=== PATIENT | female | born 1970 | race Caucasian/White ===

== ENCOUNTER 2021-01-08 09:07 | Outpatient (CLI) | payer BC, SELFPAY ==
--- NOTE | ~2021-01-08 | MM_ITS ---
EXAMINATION: MM screening rajat BI w terry HISTORY: Screening TECHNIQUE: Craniocaudal and mediolateral oblique 3-D tomosynthesis images were obtained and synthetic 2-D images were generated. CAD analysis was submitted and interpreted. COMPARISON: Comparison to multiple prior studies sequentially, with oldest reviewed study dated 01/06. BREAST PARENCHYMAL COMPOSITION: The breasts are heterogeneously dense, which may obscure small masses . FINDINGS: There is no evidence of suspicious mass, calcification, or architectural distortion to sugg est malignancy in either breast. There has been no suspicious interval change. IMPRESSION: 1. No mammographic evidence of malignancy. 2. Recommend routine screening mammography in one year. BI-RADS Category 1: Negative Reviewed, dictated and finalized at location A.
== END 2021-01-08 09:08 | disposition home or self-care (01) ==
LOC: ANHIMG 09:09
PROVIDERS: PCP Family Medicine; Visit Provider Nurse Practitioner Obstetrics & Gynecology
DX: Z12.31 Encounter for screening mammogram for malignant neoplasm of breast (principal)
CPT/HCPCS: 77063; 77067

== ENCOUNTER 2022-04-02 07:54 | Outpatient (CLI) | payer BC, SELFPAY ==
--- NOTE | ~2022-04-02 | MM_ITS ---
EXAMINATION: MM screening rajat BI w terry HISTORY: Screening TECHNIQUE: Craniocaudal and mediolateral oblique 3-D tomosynthesis images were obtained and synthetic 2-D images were generated. CAD analysis was submitted and interpreted. COMPARISON: Comparison to multiple prior studies sequentially, with oldest reviewed study dated 12/2013. BREAST PARENCHYMAL COMPOSITION: The breasts are heterogeneously dense, which may obscure small masses FINDINGS: There is no evidence of suspicious mass, calcification, or architectural distortion to sugg est malignancy in either breast. There has been no suspicious interval change. IMPRESSION: 1. No mammographic evidence of malignancy. 2. Recommend routine screening mammography in one year. BI-RADS Category 1: Negative Reviewed, dictated and finalized at location A.
== END 2022-04-02 07:55 | disposition home or self-care (01) ==
PROVIDERS: PCP Family Medicine; Visit Provider Nurse Practitioner Obstetrics & Gynecology
DX: Z12.31 Encounter for screening mammogram for malignant neoplasm of breast (principal)
CPT/HCPCS: 77063; 77067

== ENCOUNTER 2023-06-10 07:58 | Outpatient (CLI) | payer BC, SELFPAY ==
--- NOTE | ~2023-06-10 | MM_ITS ---
EXAMINATION: MM screening rajat BI w terry HISTORY: Screening TECHNIQUE: Craniocaudal and mediolateral oblique 3-D tomosynthesis images were obtained and synthetic 2-D images were generated. CAD analysis was submitted and interpreted. COMPARISON: Comparison to multiple prior studies sequentially, with oldest reviewed study dated 12/2013. BREAST PARENCHYMAL COMPOSITION: The breasts are heterogeneously dense, which may obscure small masses . FINDINGS: There is no evidence of suspicious mass, calcification, or architectural distortion to sugg est malignancy in either breast. There has been no suspicious interval change. IMPRESSION: 1. No mammographic evidence of malignancy. 2. Recommend routine screening mammography in one year. BI-RADS Category 1: Negative Reviewed, dictated and finalized at location A. E LABORATORY ANALYST
== END 2023-06-10 07:59 | disposition home or self-care (01) ==
LOC: ANHIMG 08:01
PROVIDERS: PCP Nurse Practitioner Family; Visit Provider Nurse Practitioner Obstetrics & Gynecology
DX: Z12.31 Encounter for screening mammogram for malignant neoplasm of breast (principal)
CPT/HCPCS: 77063; 77067

== ENCOUNTER 2025-05-09 08:28 | Outpatient (CLI) | payer OTHER, SELFPAY ==
--- NOTE | ~2025-05-09 | MM_ITS ---
EXAMINATION: MM screening rajat BI w terry HISTORY: Screening TECHNIQUE: Craniocaudal and mediolateral oblique 3-D tomosynthesis images were obtained and synthetic 2-D images were generated. CAD analysis was submitted and interpreted. COMPARISON: Comparison to multiple prior studies sequentially, with oldest reviewed study dated 12/24/2016. BREAST PARENCHYMAL COMPOSITION: Dense: The breasts are heterogeneously dense, which may obscure small masses FINDINGS: There is no evidence of suspicious mass, calcification, or architectural distortion to suggest malignancy in either breast. There has been no suspicious interval change. IMPRESSION: 1. No mammographic evidence of malignancy. 2. Recommend routine screening mammography in one year. BI-RADS Category 1: Negative Reviewed, dictated and finalized at location O. ESS INSTALLER
--- OUTSIDE RECORDS SUMMARY | 2025-05-09 08:33 | XMS_ITS | Data Portability ---
Author Organization [facility] Address [address] [place] [address] Assessment Encounter Date Assessment Date Assessment LastModified by Organization Details LastModified Time 03/18/2024 03/18/2024 Patient not seen due to emergent patient care; no charge visit [email or web address] Not available 03/18/2024 18:10:11 03/07/2025 03/07/2025 Annual gynecological exam performed. Patient will come back in a year unless there are new symptoms. Not available 03/07/2025 10:11:06 Plan of Treatment Reminders Order Date Submit Date Provider Last Modified By Organization Details Last Modified Time Details Appointments None recorded. Lab None recorded. Referral None recorded. Procedures None recorded. Surgeries None recorded. Imaging None recorded. Medication Orders Vivelle-Dot 0.1 mg/24 hr transdermal patch 2024 025 [id number] [facility] [id number] In [place] [id number] [place], [address], 5 10:37:40 progesteron e micronized 200 mg capsule 2024 025 MIMI [facility] [id number] In [facility] [address] [place], [address], 5 10:37:32 Vivelle-Dot 0.1 mg/24 hr transdermal patch 2024 025 M[facility]I [facility] [id number] In [facility] [address] [place], [address], 5 17:18:17 progesteron e micronized 100 mg capsule 2024 025 MIMI [facility] [id number] In [facility], [address] [facility], [place], [address], 5 10:27:23 Vivelle-Dot 0.1 mg/24 hr transdermal patch 2023 024 MIMI [facility] [id number] In [facility], [address], [place], [address], 4 00:24:32 estradiol 2 mg tablet 2023 024 [id number] [id number] In [facility], [address] [facility], [place], [address], 5 17:12:59 Patient TargetsNo targets recorded. Patient InstructionsNo instructions recorded. Reason for Referral None Reported. Results Created Date Observation Date Name Description Value Unit Range Abnormal Flag Note LastModifiedBy Organization Detail LastModifiedTime 03/07/20 25 03/07/2025 IMAGE GUIDE D PAP AND HPV REGAR DLESS image guided Pap, HPV regardless of Pap result SEE RESULT S BELOW CASE REPOR T: Cytol ogy Gynec ologi amy Repor t Case: [id number] Autho leona g Provi marcus: Chandrika Whitney MD Colle cted: 03/07 1048 Order ing Locat ion: [place] [facility] Recei karthik: 03/08 0049 First Scree n: Shady goldstein, Lexx ed, CT Speci men: Scree patt Pap - Image d, Cervi x STATE MENT OF ADEQU ACY: Satis facto ry for evalu ation Trans forma tion zone compo nent absen t ----- ----- ----- ----- ----- ----- ----- ----- ----- ----- ----- ----- ----- ----- ----- ----- ----- ---- FINAL DIAGN OSIS: Negat florina for Intra epith elial Lesio audrey or Tina holm (NIL) . Elect ferdinand bowden d by Lexx Camarena ed, CT on 2024 at 2257 CDT ----- ----- ----- ----- ----- ----- ----- ----- ----- ----- ----- ----- ----- ----- ----- ----- ----- ---- HPV RESUL TS: HPV mRNA E6/E7 : No HPV mRNA Detec ricardo NOTE: This high risk HPV mRNA assay detec ts fourt een high- risk HPV types (16, 18, 31, 33, 35, 39, 45, 51, 52, 56, 58, 59, 66, 68) witho ut diffe renti ation . COMME NT: This speci men was revie wed by a Cytot echno logis t and/o r Patho logis t (as indic ated in this repor t) after evalu ation using the Thinp rep Imagi ng Syste m. CLINI AMY INFOR MATIO N: Menst rual Statu s: LMP (if appli cable ): Clini amy Histo ry/Pr eviou s Pap: Type of Neopl marshall (if appli cable ): Signi fican t Clini amy Findi ngs: Other Histo ry: Hormo david (if appli cable ): PAP EDUCA LEOPOLDO L NOTE: The Pap Test is a scree patt test with an inher ent false negat florina rate. Liqui d-bas ed sampl ing may decre ase, but will not elimi victor m, false negat florina resul ts. A negat florina resul t does not precl ude the prese nce and/o r devel opmen t of disea se, since the prese nce of abnor mal cells in the sampl e depen ds on the locat ion of the lesio n and sampl ing techn ique. Barb nued regul ar scree patt is the best metho d of cance r preve ntion . If repor ricardo cytol ogic findi ng do not corre late with physi amy and/o r histo rical findi ngs, furth er inves tigat ion is recom dana d, as clini elian orourke nted. Not Available [facility] (Lab) [address], [place], [address], 03/12/2025 00:00:54 Result Notes None recorded. Problems Name Problem SNOMED Code Status Onset Date Resolution Date Notes Provider Name and Address Organization Details Recorded Time Screenin g for malignan t neoplasm of cervix Completed 201112/24/2020 Pap Smear;Pr actice ID: [address] [facility] 17:06:53 Adult health examinat ion Completed 201312/24/2020 ROUTINE MEDICAL EXAM;Rec orded Elsewher e: No Locat ion: [facility] S ource: EHR Office Support Clerk tan: N Kianati ce ID: 0001 Matt lable Time: 08:30:[address] [facility] 17:06:39 Speciali zed medical examinat ion Completed 201412/24/2020 Gynecolo gical Examinat ion;Kuldip rded Elsewher e: No Locat ion: [facility] S ource: EHR Office Support Clerk tan: N Kianati ce ID: 0001 Matt lable Time: 08:30:00 AM Maggi [facility] 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 17:06:58 Pain co-occur rent and due to varicose veins of left leg [id number] Completed 201612/24/2020 Varicose veins of left lower extremit ies with pain;Rec orded Elsewher e: No Locat ion: [facility] S ource: EHR Office Support Clerk tan: N Practi ce ID: 0001 Matt lable Time: 09:00:00 AM Maggi [facility] 17:06:[address] Concept Completed 201612/24/2020 Encntr for general adult medical exam w/o abnormal findings ;Recorde d Elsewher e: No Locat ion: [facility] S ource: EHR Office Support Clerk tan: N Practi ce ID: 0001 Matt lable Time: 09:00:00 AM Maggi espinoza, [facility] 17:06:56 Urinary tract infectio us disease [id number] Completed 201612/24/2020 Urinary tract infectio n, site not specifie d;Practi ce ID: 0001 Maggi espinoza, [facility] 17:07:02 Increase d frequenc y of urinatio n [id number] Completed 201612/24/2020 Frequenc y of micturit ion;Prac samra ID: 0001 Maggi [facility] 17:06:46 Evaluati on finding Completed 201712/24/2020 Hematuri a, unspecif ied;Kuldip rded Elsewher e: No Locat ion: [facility] S ource: EHR Office Support Clerk tan: N Practi ce ID: 0001 Matt lable Time: 04:30:00 PM Maggi espinoza [facility] 17:06:45 Screenin g for malignan t neoplasm of rectum Completed 201812/24/2020 Encounte r for screenin g for malignan t neoplasm of rectum;R ecorded Elsewher e: No Locat ion: [facility] S ource: EHR Office Support Clerk tan: N Practi ce ID: 0001 Matt lable Time: 08:30:00 AM Maggi [facility] 1 17:06:55 Pelvic and perineal pain [id number] Completed 201812/24/2020 Pelvic pain;Rec orded Elsewher e: No Locat ion: [facility] S ource: EHR Office Support Clerk tan: N Practi ce ID: 0001 Matt lable Time: 08:30:00 AM Maggi Walker [facility] 1 17:06:52 Problem Notes None recorded. Procedures Surgical History Date Name Laterality Status Provider Name and Address Organization Details Recorded Time 3 Date of Last Mammogram completed [facility] 11/23/2023 16:28:20 3 Date of Last Pap Smear completed [facility] 11/23/2023 16:26:48 2 section completed [facility] 04/17/2021 10:54:07 2 Tubal Ligation completed [facility] 04/17/2021 10:53:54 7 section completed [facility] 04/17/2021 10:54:14 5 section completed [facility] 04/17/2021 10:54:28 1 extraction of wisdom tooth completed [facility] 04/19/2021 16:06:15 Imaging Results None recorded. Procedure Notes None recorded. Medical Equipment None Reported. Allergies Allergen ID Allergen Name Allergen Category Reaction Reaction Severity Criticality Documentation Date Start Date Code Code System Note Provider Name and Address Organization Details Recorded Time 1133 codeine medicatio n Not available Not available Not available 12/16/2019 3420 RxNorm upset stoma ch Adela Fern [facility], [facility] 3 10:30:49 Medications Name Sig Start Date Stop Date Status Note LastModified by Organization Details LastModified Time paroxetin e 10 mg tablet TAKE 1 TABLET BY MOUTH EVERY DAY IN THE MORNING 02/08 completed Not Available Not Available Not Available Vivelle-D ot 0.1 mg/24 hr transderm al patch Apply 1 patch twice a week by transder mal route for 90 days. 2024 active Not Available Not Available Not Avai lable azithromy vee 250 mg tablet TAKE 2 TABLETS BY MOUTH TODAY, THEN TAKE 1 TABLET DAILY FOR 4 DAYS 06/08 completed Not Available Not Available Not Available CombiPatc h 0.05 mg-0.14 mg/24 hr transderm al APPLY 1 PATCH TOPICALL Y TO THE SKIN 2 TIMES EVERY WEEK 10/16 completed Not Available Not Available Not Available fluconazo le 150 mg tablet Take 1 tablet by oral route 07/20 completed Not Available Not Available Not Available valacyclo vir 1 gram tablet 01/08 completed Not Available Not Available Not Available metronida zole 0.75 % (37.5 mg/5 gram) vaginal gel INSERT 1 APPLICAT ORFUL VAGINALL Y EVERY DAY FOR 5 DAYS 06/08 completed Not Available Not Available Not Available estradiol 0.05 mg/24 hr semiweekl y transderm al patch APPLY 1 PATCH TWICE A WEEK BY TRANSDER MAL ROUTE FOR 90 DAYS 04/16 completed Not Available Not Available Not Available sulfameth oxazole 800 mg-trimet hoprim 160 mg tablet TAKE 1 TABLET BY MOUTH EVERY 12 HOURS FOR 7 DAYS 04/05 completed Not Available Not Available Not Available Macrobid 100 mg capsule Take 1 capsule every 12 hours by oral route for 5 days. 12/24 completed Not Available Not Available Not Available estradiol 1 mg tablet TAKE 1 TABLET BY MOUTH EVERY DAY AT BEDTIME 07/09 completed Not Available Not Available Not Available cephalexi n 500 mg capsule 12/24 completed Not Available Not Available Not Available progester one micronize d 200 mg capsule Take 1 capsule every day by oral route for 90 days. 2024 active Not Available Not Available Not Avai lable sertralin e 25 mg tablet TAKE 1 TABLET BY MOUTH EVERY DAY WITH MEALS FOR 30 DAYS 04/16 completed Not Available Not Available Not Available CombiPatc h 0.05 mg-0.25 mg/24 hr transderm al APPLY 1 PATCH TWICE A WEEK BY TRANSDER MAL ROUTE DIRECTED 11/22 completed Not Available Not Available Not Available estradiol 2 mg tablet TAKE 1 TABLET BY MOUTH EVERY DAY 07/09 completed Not Available Not Available Not Available ergocalci ferol (vitamin D2) 1,250 mcg (50,000 unit) capsule TAKE 1 CAPSULE BY MOUTH EVERY WEEK WITH MEAL FOR 90 DAYS 10/17 completed Not Available Not Available Not Available methylpre dnisolone 4 mg tablets in a dose pack active Not Available Not Available Not Available fluticaso ne propionat e 50 mcg/actua tion nasal spray,arsenio pension INSTILL 2 SPRAYS BY INTRANAS AL ROUTE EVERY DAY 02/08 completed Not Available Not Available Not Available progester one micronize d 100 mg capsule TAKE 1 CAPSULE BY MOUTH EVERY DAY FOR 90 DAYS 03/07 completed Not Available Not Available Not Available Vitamins and Minerals tablet 10/17 completed Prescrib brenda foster: Yes [facility]oca [facility] By: rupal crain DateTime : 12/14/19 12 08:15:00 AM Not Available Not Available Not Available Premarin 0.625 mg/gram vaginal cream Insert 0.5gm vaginall y nightly x 14 days then, insert twice a week for maintena nce. 10/16 completed Not Available Not Available Not Available Tri-Sprin debbie (28) 0.18 mg(7)/0.2 15 mg(7)/0.2 5 mg(7)-0.0 35 mg tablet TAKE 1 TABLET BY MOUTH ONCE DAILY 12/25 completed Not Available Not Available Not Available Vitamins and Minerals 12/25 completed Not Available Not Available Not Available Tri-Sprin debbie (28) 12/24 completed Not Available Not Available Not Available estradiol -norethin drone acet 0.5 mg-0.1 mg tablet TAKE ONE TABLET DAILY IN MORNING FOR 90 DAYS 10/17 completed Not Available Not Available Not Available Women's Daily Multivita min active Not Available Not Available Not Available Xhance 93 mcg/actua tion breath activated aerosol 2 SPRAYS IN EACH NOSTRIL NASALLY ONCE A DAY 30 DAYS active Not Available Not Available No t Available Imvexxy Maintenan ce Pack 4 mcg vaginal insert Insert 1 vaginal insert twice a week by vaginal route at bedtime for 30 days. 01/14 completed Not Available Not Available Not Available Vitals Date Recorded Body height Body mass index (BMI) Body weight Systolic And Diastolic Provider Name and Address Organization Details Last Updated DateTime 07/09/2024 162.56 cm 21.1 kg/m2 10400.86 g 122/82 mm[Hg] Keeley [facility] 07/09/2024 17:03:52 Date Recorded Body height Body mass index (BMI) Body weight Systolic And Diastolic Provider Name and Address Organization Details Last Updated DateTime 01/15/2024 162.56 cm 22.2 kg/m2 70932.85 g 111/68 mm[Hg] Francheska Chou [facility] 01/15/2024 16:23:36 Date Recorded Body height Body mass index (BMI) Body weight Systolic And Diastolic Provider Name and Address Organization Details Last Updated DateTime 03/07/2025 162.56 cm 21.6 kg/m2 23957.64 g 129/78 mm[Hg] Lexy Platt [facility] 03/07/2025 10:12:08 Date Recorded Body height Body mass index (BMI) Body weight Systolic And Diastolic Provider Name and Address Organization Details Last Updated DateTime 04/15/2024 162.56 cm 21.1 kg/m2 04960.86 g 110/74 mm[Hg] Keeley Villanueva [facility] 04/15/2024 17:06:30 Social History Question Answer Notes LastModified by Organizat ion Details LastModified Time Tobacco Smoking Status Never Smoker Sahil espinoza [facility] 04/17/2021 10:35:58 Do You Have An Advance Directive? No Information n ot available 04/05/2021 Are You Blind Or Do You Have Difficulty Seeing? No Information n ot available 12/24/2020 What Is Your Level Of Caffeine Consumption? Occasional Information not available 12/24/2020 In The 14 Days Before Symptom Onset, Have You Had Close Contact With A Laboratory-confirm ed COVID-19 While That Case Was Ill? No Information n ot available 04/05/2021 In The 14 Days Before Symptom Onset, Have You Had Close Contact With A Person Who Is Under Investigation For COVID-19 While That Person Was Ill? No Information not available 04/05/2021 Have You Been To An Area Known To Be High Risk For COVID-19? No Information not available 04/05/2021 Are You Deaf Or Do You Have Serious Difficulty Hearing? No Information not available 12/24/2020 What Type Of Diet Are You Following? REGULAR Information n ot available 04/17/2021 What Is The Highest Grade Or Level Of School You Have Completed Or The Highest Degree You Have Received? [id number] Information not available 04/05/2021 Have You Ever Been Counseled For Unhealthy Alcohol Use? No [email or web address] Information not available 08/07/2021 Do You Use Your Seat Belt Or Car Seat Routinely? Yes Information not available 12/24/2020 Do You Have Smoke And Carbon Monoxide Detectors In Your Home? Yes Information not available 12/24/2020 How Much Tobacco Do You Smoke? No Information not available 04/05/2021 Do You Use Sunscreen Routinely? Yes Information not available 12/24/2020 Has Tobacco Cessation Counseling Been Provided? No [email or web address] Information not available 08/07/2021 Have You Used IV Drugs? No Information not available 04/05/2021 Do You Have Difficulty Walking Or Climbing Stairs? No [email or web address] Information not available 08/07/2021 Sex: Unknown Functional Status Question Answer Note LastModified by Organizat ion Details LastModified Time Do you use any illicit or recreational drugs? No Information not available 12/24/2020 Do you or have you ever used any other forms of tobacco or nicotine? No [email or web address] Information not available 08/07/2021 What is your level of alcohol consumption? Occasional [email or web address] Information not available 08/07/2021 Are you able to walk independently without assistance or assistive devices? [email or web address] Information not available 12/24/2020 Are you able to care for yourself independently? Yes Information not available 08/07/2021 Do you have difficulty dressing, bathing, grooming, or toileting? No Information not available 08/07/2021 What is your exercise level? Occasional Information not available 04/05/2021 Mental Status Question Answer Note LastModified by Organization D etails LastModified Time Do you feel stressed (tense, restless, nervous, or anxious, or unable to sleep at night)? [id number] Information not available 12/24/2020 Family History Relationship Description Onset Age of this Age Resolved Age Notes LastModified by Organization Details LastModified Time Father No current problems or disability [email or web address] Not available 03/21 09:33:07 Mother No current problems or disability [email or web address] Not available 03/21 09:33:07 Medical History Condition Response Allergies (Food, seasonal, environmental ) N Other Y Breast Cancer N Drug/Latex Allergies/Reactions N Blood Transfusion N Dermatologic Disorders N Lung Disease N Defects or Inherited Disease N Breast Problem N Gestational Diabetes Y Hematologic disorders N Anesthesia Complications N History of STI Y Deep Vein Thrombosis N Polycystic ovary syndrome N Anxiety Disorder Y Autoimmune disease N Arthritis N Infertility N Polyps N Acid Reflux (GERD) N History of abnormal pap N Cancer N Stroke N Varicosities N Neurologic/Epilepsy N Endometriosis N High Cholesterol N Headaches N Fibromyalgia N Kidney Disease N Heart Problems N Kidney or Bladder Problems N Thyroid Problems Y GI Problems N Eating Disorder N Anemia N Art (IVF or FET) N Psychiatric Illness N Ovarian Cancer N Diabetes Y Pulmonary (TB, Asthma) N Hepatitis/Liver Disease N No Past Medical History N Eczema N Urinary Tract Infection N Abuse/Domestic Violence N Asthma N Trauma/Violence N Depression/ depression Y Heart Disease Y Pre-Eclampsia N Hypertension N Osteoporosis N Thrombophilias N Gynecological History Statement/Question Response Abnormal Pap N Date of Last Mammogram 06/10/2023 Flow Moderate Date of LMP Was last menstrual period normal N STIs/STDs Y HPV Vaccine N 14 Current Control Method Tubal Ligat ion If Post Menopausal, Age at Menopause 50 Are cycles usually normal N Date of Last Colonoscopy Sexually Active? Y Menses Monthly N Date of Last Pap Smear 02/08/2023 Sexual Problems? Y Desired Control Method Other LMP Approximate Obstetrics History GPAL:G 3 P 3 0 0 3 Type Value Full Term 3 Living 3 Total 3 Past Encounters Encounter ID Performer Location Encounter Start Date Encounter Closed Date Diagnosis/Indication Diagnosis SNOMED-CT Code Diagnosis ICD10 Code Diagnosis IMO Codes Diagnosis Note [id number] Evelia Mckeon , [facility] [address] [address] 12/16/2019 09:33:40 12/16/2019 10:31:09 Gynecologic examination [id number] Z01.419 Z30.8 Suggested Calcium with Vitamin D 1200-1500m g daily. Patient advised to get an annual flu shot in the fall and she could obtain at [facility] or [facility] clinic. Also to obtain TDap vaccinatio n if you have not had one in the last 10 years. Recommend yearly mammograms . Encouraged monthly self breast exams. Encourage safe sexual practices, to use condoms and limit partners if not already in a monogamous relationsh ip. Engage in daily exercise of low impact aerobic exercise 45-60 minutes 4-5 times weekly. Avoid tobacco and illicit drugs as well as using moderation with alcohol intake less than 1-2 8 oz beverages daily. This lifestyle behavior pattern will lead to less health conditions and longer life span. If BMI greater than 25 weight watchers or dietary consult advised. All questions have been answered. Patient appears to understand informatio n, but if you have any questions please call or respond to this email. Pap/hPV updated If appropriat e consider q3yr pap/hpv per asccp Mammo ordered RF OCP [id number] Katarzyna Bee CNM [facility] [address] [address] 02/25/2020 17:29:12 02/25/2020 17:52:51 [id number] Evelia Mckeon [facility] [address] [address] 12/25/2020 10:01:24 12/25/2020 12:12:59 Gynecologic examination [id number] Z01.419 Z30.8 Suggested Calcium with Vitamin D 1200-1500m g daily. Patient advised to get an annual flu shot in the fall and she could obtain at [facility] or [facility] clinic. Also to obtain TDap vaccinatio n if you have not had one in the last 10 years. Recommend yearly mammograms . Encouraged monthly self breast exams. Encourage safe sexual practices, to use condoms and limit partners if not already in a monogamous relationsh ip. Engage in daily exercise of low impact aerobic exercise 45-60 minutes 4-5 times weekly. Avoid tobacco and illicit drugs as well as using moderation with alcohol intake less than 1-2 8 oz beverages daily. This lifestyle behavior pattern will lead to less health conditions and longer life span. If BMI greater than 25 weight watchers or dietary consult advised. All questions have been answered. Patient appears to understand informatio n, but if you have any questions please call or respond to this email. Pap/hPV updated If appropriat e consider q3yr pap/hpv per asccp Mammo ordered Adult heal th examination [id number] Z00.00 Will do updated yearly labs which she will need to take to her PCP.In addition, this will ensure none of her other sx's are related other issues. Menopausal flushing 1983 52491 N95.1 We discussed Menopausal Hormone therapy (MHT) for women with intact uterus with the goals of reliving vaso-motor sx's using estrogen/p rogestin therapy (EPT) using lowest doses for shortest duration in women 40-59yo. Contraindi cations include: Hx of DVT or thrombolic events, High cholestero l, Hx of breast cancer, known CHD, active liver disease, unexplaine d vag bleeding, high risk endometria l cancer, TIA. Side effects can include but are not limited to: Irregular vag bleeding,, breast tenderness , nausea, weight changes, libido changes, nausea. Adverse Rxn: Elevated BP migraine w/ visual changes, breast cancer dx, [place]/stroke, DVT/PE, Endometria l cancer. Please contact office with any new or worsening side effects or adverse reactions. Or if a medical emergency please go to nearest ED/[facility] for further evaluation . Will consider moving forward if she is not getting the relief from the new supplement s that she is taking. Recommend The menopause manifesto by Dr. Malathi Chavez. Missed menses LMP 09/2020.Off OCP x 3mos.Check to see if in menopause. Dyspareunia [id number] N94 .10 Counseled on medication R/B's, Most common side effects, & use. All questions were answered to patient satisfacti on. Opts to trial low dose vaginal estrogen therapy today.Add VCG moisturizi ng daily F/U x 3mos [id number] Ana Fernandez MD [facility] [address],[place] [address] 03/15/2021 17:11:38 03/16/2021 15:31:44 Urinary symptoms [id number] R39.9 [id number] [facility] [address],[place] [address] 04/05/2021 10:29:40 04/05/2021 12:04:38 Menopausal symptom [id number] R94.5 N95.1 We discussed Menopausal Hormone therapy (MHT) for women with intact uterus with the goals of reliving vaso-motor sx's using estrogen/p rogestin therapy (EPT) using lowest doses for shortest duration in women 40-59yo. Contraindi cations include: Hx of DVT or thrombolic events, High cholestero l, Hx of breast cancer, known CHD, active liver disease, unexplaine d vag bleeding, high risk endometria l cancer, TIA. Side effects can include but are not limited to: Irregular vag bleeding,, breast tenderness , nausea, weight changes, libido changes, nausea. Adverse Rxn: Elevated BP migraine w/ visual changes, breast cancer dx, IL/stroke, DVT/PE, Endometria l cancer. Please contact office with any new or worsening side effects or adverse reactions. Or if a medical emergency please go to nearest ED/[facility] for further evaluation . Will check in with PCP for labile liver enzyme results (current levels only 1 is slightly elevated). Hx of MVP since she was a kid but no medication s/surgerie s and no cardiologi st required.P reviously tolerated OCP very well. RTO x 3mos medication checkPleas e bring updated labs from PCP with you.Unders tanding verbalized for all risks discussed with use of HRT & her personal R/B ratios. Time spent in visit is a total of 32 mins with at least 50% of visit consisting of counseling and review of plan of care.Addit ional precaution ismael measures were taken to minimize potential exposure to the Covid-19 virus during this patient s visit, including available hand labor utilization superintendent upon arrive, temperatur e check and being asked a series of screening questions. All staff wore face coverings during this encounter, as well as provided additional cleaning and sanitizing of all surfaces, including countertop s, pens, chairs, door handles, light switches, etc, prior to and following the patient s visit. [id number] Evelia Mckeon [facility] [address],[place] [address] 04/17/2021 10:34:41 04/18/2021 22:50:33 Vaginitis [id number] N76.0 Suspect yeast infection after abx use.+Yeast like d/c on examDifluc an sentSwab sent to confirm no other issuesDecl maurisio need std screen Pain in pelvis [id number] R10.2 Having some random left sided pelvic painDoing well today but feels more reassured with plan to update US. [id number] Lino Brown MD [facility] [address],[place] [address] 04/19/2021 12:32:35 04/19/2021 13:06:09 Pain in pelvis [id number] R10.2 [id number] Evelia Mckeon [facility] [address],[place] [address] 06/28/2021 12:21:59 06/28/2021 15:08:28 Menopausal symptom [id number] R94.5 N95.1 Trial of increasing progestero ne levels but keep estrogen the same; hoping this will decrease liklihood of any intermitte nt spotting with menstrual cycles.We will monitor this aspect & if continues to have issues r/p labs & update TVUS as might need EMBx to ensure no abnormalit ies. We will see if adding a bit more progestero ne will also help her mood but also discussed that an addition of a low dose SSRI would likely be a more pliable option for this issue. Plus, we also do not want to add any more hormone to her plan then we require. She verbalizes understand ing. Additional issues to address moving forward:1. Mood2. Dyspareuni a3. AUB from HRT and need for EMBx. RTO x 2-4wks for medication check & discussion of progress. Time spent in visit is a total of 15 mins with at least 50% of visit consisting of counseling and review of plan of care.Addit ional precaution ismael measures were taken to minimize potential exposure to the Covid-19 virus during this patient s visit, including available hand labor utilization superintendent upon arrive, temperatur e check and being asked a series of screening questions. All staff wore face coverings during this encounter, as well as provided additional cleaning and sanitizing of all surfaces, including countertop s, pens, chairs, door handles, light switches, etc, prior to and following the patient s visit. [id number] Evelia Mckeon , [facility] [address] [address] 08/07/2021 09:42:17 08/07/2021 12:12:40 Menopausal symptom [id number] R94.5 N95.1 N94.19 Vaginitis vs Perimenopa use changesSwa b sent but still with prominent perimenopa use changes as we previously discussed. Crisco daily 2-3x/dayWi ll trial Premarin Cream RTO x 2mosVCG's consistent use.Will call with results. HRT:We will again update her HRT regimen.Co nsider doing an all Estrogen patch and then bumping up Prometrium 200mg daily vs 100mg daily.Will see how she is doing in 2mos. Elevated Liver enzymes:Wi ll have PCP office fax updated lab results.Re ports her liver enzymes are back in a normal range.Her DM2 numbers have also improved.W ashley continue her dietary changes that have helped these issues. [id number] Evelia Mckeon , [facility] [address],[facility] [address] 10/16/2021 10:23:57 10/16/2021 11:08:15 Menopausal symptom [id number] R94.5 N95.1 N94.19 Doing well on current regimen.We did decide to do estradiol patch alone coupled with prometrium 200mg (instead of combi patch).She will get her CMP updated & make WWE at which we will ensure she is still stable on HRT.Using coconut oil for vaginal lubricant daily/with sex.She has no questions or concerns today. Time spent in visit is a total of 15 mins with at least 50% of visit consisting of counseling and review of plan of care. [id number] Evelia Mckeon , [facility] [address],[place] [address] 01/08/2022 10:11:53 01/10/2022 16:32:28 Gynecologic examination [id number] Z01.419 Z30.8 Suggested Calcium with Vitamin D 1200-1500m g daily. Patient advised to get an annual flu shot in the fall and she could obtain at [facility] or [facility] clinic. Also to obtain TDap vaccinatio n if you have not had one in the last 10 years. Recommend yearly mammograms . Encouraged monthly self breast exams. Encourage safe sexual practices, to use condoms and limit partners if not already in a monogamous relationsh ip. Engage in daily exercise of low impact aerobic exercise 45-60 minutes 4-5 times weekly. Avoid tobacco and illicit drugs as well as using moderation with alcohol intake less than 1-2 8 oz beverages daily. This lifestyle behavior pattern will lead to less health conditions and longer life span. If BMI greater than 25 weight watchers or dietary consult advised. All questions have been answered. Patient appears to understand informatio n, but if you have any questions please call or respond to this email.Pap/ hpv due q3-5yrsSTD Screen declinedGe netic Screen discussedC olon Screen orderedDex a Screen naRoutine Labs UTDMammo ordered Menopausal symptom 89512 002 R94.5 N95.1 N94.19 RF sent Screening mammography 24 673747 Z12.31 Screening for malignant neoplasm of colon [id number] Z12.11 [id number] Evelia Mckeon [facility] [address],[place] [address] 03/09/2022 10:36:45 03/09/2022 12:32:13 Menopausal symptom 38534169 R94.5 N95.1 N94.19 Patient prefers to switch back to combi patch.Feel s worked better for her menopause sx'sWe can do med check x 4wks along with Zoloft HRT Therapy. We discussed E/P & P only therapy. All risks/bene fits of this therapy were discussed today. Patient meets criteria for use of E/P or P-only. Handouts/w ebsite resources were given for home review. Generalize d anxiety disorder [id number] F41.1 Trial of low dose zoloft for JACINDA which also may help with additional management of menopause sx's. Counseled on r/b's, most common side effects of this therapy with instructio ns to stop medication with any significan t abnormal change in mood especially with thoughts of suicide/se lf-harm/eden rm to others. Understand ing verbalized .RTO x 4wks Med checkNOTE: Will have fill out JACINDA questionna ires Adult heal th examination [id number] Z00.00 In addition, will do updated yearly labs & if any abn values understand s referrals will be required for further management depending on the issue at hand. Vitamin D deficiency 347 32835 E55.9 [id number] Evelia Mckeon [facility] [address],[place] [address] 04/16/2022 09:22:33 04/18/2022 16:46:52 Menopausal symptom 72361313 R94.5 N95.1 N94.19 On Combi-patc h.Overall doing well but did have some BTB felt like a little crampy period this past week after using it for about a month now.Hotfla shes/night sweats improving. Moods more stable/fee ls able to calm herself if feels her emotions rise. We discussed sending a portal message updating us on if this BTB occurred again after another 2mos (full 3mos on this HRT).If it becomes a regular occurrence we will update US to determine if further evaluation /changes are required. If stable & doing well will continue. Vitamin D deficiency [address] D & we can recheck labs in about 3mos. Generalize d anxiety disorder [id number] F41.1 Stopped Zoloft after 2 days.Took at night & kept her up.Took in afternoon next day & still felt it effected her sleep & had a little dizziness which concerned her.Neg feeling of suicidal thoughts/t houghts of self harm.Stopp ed meds.Start ed Ashwaganda twice a day; we discussed adding L-theanine 200mg BID to this regimen which she felt does help her anxiety and ability to calm herself when emotions elevate.Wo rking on mindfulnes s & self-care. May continue but will reach out if feels this is not adequately managing her anxiety/di srupting her quality of life. [id number] Evelia Mckeon [facility] [address],[place] [address] 10/17/2022 09:55:43 10/17/2022 11:08:17 Menopausal symptom 29860225 R94.5 N95.1 N94.19 Will restart Combi-patc h.Risks/be nefits reviewed.W ill f/u at her upcoming [employer] visit this summer unless she feels like changes are needed prior to this time.Rx sentHx reviewed & changes updated in Hx. Time spent in visit is a total of 15 mins with at least 50% of visit consisting of counseling and review of plan of care. [id number] Evelia Mckeon [facility] [address],[place] [address] 02/08/2023 10:09:36 02/08/2023 11:04:21 Gynecologic examination [id number] Z01.419 Z30.8 Suggested Calcium with Vitamin D 1200-1500m g daily. Patient advised to get an annual flu shot in the fall and she could obtain at [facility] or [facility] take care clinic. Also to obtain TDap vaccinatio n if you have not had one in the last 10 years. Recommend yearly mammograms . Encouraged monthly self breast exams. Encourage safe sexual practices, to use condoms and limit partners if not already in a monogamous relationsh ip. Engage in daily exercise of low impact aerobic exercise 45-60 minutes 4-5 times weekly. Avoid tobacco and illicit drugs as well as using moderation with alcohol intake less than 1-2 8 oz beverages daily. This lifestyle behavior pattern will lead to less health conditions and longer life span. If BMI greater than 25 weight watchers or dietary consult advised. All questions have been answered. Patient appears to understand informatio n, but if you have any questions please call or respond to this email.Pap/ hpv due q3-5yrsSTD Screen declinedGe netic Screen discussedC olon Screen PCPDexa Screen naRoutine Labs UTD PCPMammo orderedDoi ng well on combi patch-no changes needed there.Call if need RF's Screening mammography 24 403908 Z12.31 [id number] Evelia Mckeon [facility] [address] [address] 06/08/2023 08:58:18 06/08/2023 10:41:36 Vaginitis 39482369 N76.0 Today we agreed to continuing VCG's and 4wks for imvexxy to restore balance to postmenopa usal tissues post-infec tion/treat ment of BV. Will call if sx's persist past this time or new ones present. Counseled on medication R/B's, Most common side effects, & use. All questions were answered to patient satisfacti on. Time spent in visit is a total of 22 mins with at least 50% of visit consisting of counseling and review of plan of care. Adult [facility] th examination 770441144 Z00.00 In addition, will do updated yearly labs & if any abn values understand s referrals will be required for further management depending on the issue at hand. [id number] Evelia Mckeon [facility] [address] [address] 11/23/2023 16:16:23 12/11/2023 05:32:00 Menopausal symptom 79039700 R94.5 N95.1 N94.19 Increase in her vasomotor sx's on combi-patc hWould like to trial PO therapy vs patch.Does not want to go back to [facility].W e discussed go ahead with trial of Low dose Testostero ne cream for Low libido; we also discussed that she could have female pattern baldness which usually requires anti-roscoe gen; She would still like to try it for 3mos; but will stop if noticing any significan t increase in this issue.Base line Total Testostero ne was on labs recently done by [facility]; these were scanned into her chart; and wnl for female. Reviewed again R/B of HRT as stated.Aga in wishes to proceed with trial.F/U x 3mos med check We discussed Menopausal Hormone therapy (MHT) for women with intact uterus with the goals of reliving vaso-motor sx's using estrogen/p rogestin therapy (EPT) using lowest doses for shortest duration in women 40-59yo. Contraindi cations include: Hx of DVT or thrombolic events, High cholestero l, Hx of breast cancer, known CHD, active liver disease, unexplaine d vag bleeding, high risk endometria l cancer, TIA. Side effects can include but are not limited to: Irregular vag bleeding,, breast tenderness , nausea, weight changes, libido changes, nausea. Adverse Rxn: Elevated BP migraine w/ visual changes, breast cancer dx, IL/stroke, DVT/PE, Endometria l cancer. Please contact office with any new or worsening side effects or adverse reactions. Or if a medical emergency please go to nearest ED/[facility] for further evaluation . 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 Gynecologi c examination 91798828 Z01.419 Z11.51 Suggested Calcium with Vitamin D 1200-1500m g daily. Patient advised to get an annual flu shot in the fall and she could obtain at [facility] or [facility] take care clinic. Also to obtain TDap vaccinatio n if you have not had one in the last 10 years. Recommend yearly mammograms . Encouraged monthly self breast exams. Encourage safe sexual practices, to use condoms and limit partners if not already in a monogamous relationsh ip. Engage in daily exercise of low impact aerobic exercise 45-60 minutes 4-5 times weekly. Avoid tobacco and illicit drugs as well as using moderation with alcohol intake less than 1-2 8 oz beverages daily. This lifestyle behavior pattern will lead to less health conditions and longer life span. If BMI greater than 25 weight watchers or dietary consult advised. All questions have been answered. Patient appears to understand informatio n, but if you have any questions please call or respond to this email.Pap/ hpv due q3-5yrs (2022 wnl) monogamous STD Screen declinedGe netic Screen discussedC olon Screen PCPDexa Screen naRoutine Labs UTD PCPMammo ordered [id number] MD Fredrick [facility] [address],[place] [address] 01/15/2024 16:19:45 01/15/2024 17:10:23 Menopausal symptom 97384602 N95.1 - currently on estradiol 1mg/promet rium 100mg daily; symptoms mildly improved but not ideal- discussed increasing estradiol dosage and monitoring response, risks and benefits discussed vs trying OTC supplement s- patient would like to increase estradiol dosage and monitor response- also discussed transition to estrogen patch if higher dosage improves symptoms due to lower risk of VTE with patch vs pill- will stop testostero ne cream as she has not noticed an improvemen t in symptoms- follow up in 2-3 months Alopecia [id number] L65.9 - taking prose vitamins- discussed spironolac tone for androgenic alopecia, patient would like to wait at this time. [id number] MD [place] [address] [place] [address] 03/18/2024 16:25:10 03/18/2024 18:10:16 [id number] MD Fredrick [facility] [address] [place] [address] 04/15/2024 16:53:59 04/18/2024 16:33:18 Menopausal symptom 22465684 N95.1 - currently on estradiol 2mg/promet rium 100mg daily; symptoms improved- discussed transition to estrogen patch due to lower risk of VTE with patch vs pill; patient desires to transition to patch- follow up in 2-3 months [id number] MD Michelle [place] [address] [place] [address] 07/09/2024 16:45:25 07/09/2024 17:19:42 Menopausal symptom 25744854 N95.1 - symptoms improved on estrogen patch- continues on PO progestero ne at night- no side effect; one period early Jun, has not been 1 year without menses- continue estradiol patch/PO progestero ne- rtc WWE [id number] PEDRO PABLO JOYNER MD [facility] [address] [address] 03/07/2025 09:51:09 03/07/2025 10:43:03 Menopausal symptom 33361867 N95.1 - symptoms improved on estrogen patch and 200mg progestero ne- no side effects- continue estradiol patch/PO progestero ne Gynecologi c examination 67744218 Z01.419 [id number] [facility]- Cervical cancer screening: Pap smear not indicated obtained today, will follow up on the results with the patient as they become available- Breast cancer screening: mammogram ordered- HPV immunizati on: does not qualify- STD testing: declined- hereditary cancer screening: does not qualify for testing Health Concerns Section Related Observation LastModified by Organization Detai ls LastModified Time None Recorded Concern Status LastModified by Organization Details LastModified Time None Recorded Advance Directives Directive N: Payers Insurance Date Sequence Insurance Name Policy Number Policy Ritter Covered Member ID Ritter Member ID Guarantor Name 03/07/2025 1 [employer] [id number] F Genevieve Correia [id number] Genevieve Correia 03/11/2025 1 [facility] [id number] Genevieve Correia [id number] Genevieve Correia Notes Date Note Type Note Provider Name and Address Organization Details Recorded Time 01/15/2024 text/html Patient presents for med check. Started MHT with estradiol pill and micronized progesterone on 11/22. Still having regular cycles. Was previously prescribed T3/T4 and DHEA/progesterone supplements from hormone clinic but did not start them. Patient reports poor sleep, dry skin, hair loss. Trying some over the counter supplements for skin health and sleep. Hot flashes relatively controlled. Was also prescribed testosterone cream for HSDD. Has not improved symptoms much. Stopped 1 week ago. PEDRO PABLO JOYNER MD [address], [place], [address], [facility] 01/15/2024 17:08:29 04/15/2024 text/html Presents for med check. Was increased to 2mg estradiol PO in 12/2023. Reports lower appetite since starting. Sleep and other symptoms have improved. Would like to transition to estradiol patch due to decreased VTE risk over the pill. Overall happy with MHT. PEDRO PABLO JOYNER MD [address], [place], [address], [facility] 04/18/2024 00:24:46 07/09/2024 text/html Patient presents for med check. She reports good improvement in hot flashes with estrogen patch. She reports 1 hot flash per week. Had period 06/19-06/28, very light. No other abnormal bleeding. Appetite now normal. Sleep improved as well. PEDRO PABLO JOYNER MD [address], [place], [address], [facility] 07/09/2024 17:19:31 03/07/2025 text/html Presents today for her annual well-woman exam. Denies abnormal vaginal discharge. She is sexually active and denies dyspareunia. She is using tubal ligation for contraception, and she states that she is satisfied with this method. She has not noticed any changes or masses in her breasts. Mammogram scheduled in March. Amenorrheic with HRT. PEDRO PABLO JOYNER MD [address], [place], [address], [facility] 03/07/2025 10:37:44 OBGyn Episode Ob Episode Information Episode Created Date Number of Fetuses Patient Bloodtype Patient rh Status Prepregnancy Weight lbs Domestic Partner Domestic Partner Phone Father Name [employer] Status 12/16/19 20 1 CLOSED Fetus Data First Name Last Name Admitted to NICU Weight (g) Sex Living Outcome Pediatric Complications Fetus ID Race Codes Race Delivery Type 2834.95 F Prematur e 2589 Repeat Ruiz Calculation Initial Ruiz Date Initial Exam Date Initial Exam Provider Initial Ultrasound Date Last Menstrual Period Date Ultra Sound Weeks Gestation 0 Eighteen To Twenty Week Ruiz Update Ultra Sound Date Fundal Height At Umbil Quickening Date Ultra Sound Latest Weeks Gestation Final Ruiz Confirmed By Final Ruiz Confirmed Date Final Ruiz Date Ultra Sound Latest Days Gestation 0 0 Menstrual History Last Menstrual Date Menses Monthly On Bcp Conception Prior Menses Frequency Hcg Plus Date Menarche Onset Age Delivery Information Delivery Date Delivery Type Labor Anesthesia Weeks Gestation Incision Type Labor Labor Length Hrs Delivered By Post Complications Tubal Sterilization Discharge Date Comments 7 35 true DOWN SYNDROME, GDM Discharge Information Feeding Method Contraceptive Method Maternal HG B and HCT Levels Ob Episode Information Episode Created Date Number of Fetuses Patient Bloodtype Patient rh Status Prepregnancy Weight lbs Domestic Partner Domestic Partner Phone Father Name [employer] Status 12/16/19 20 1 CLOSED Fetus Data First Name Last Name Admitted to NICU Weight (g) Sex Living Outcome Pediatric Complications Fetus ID Race Codes Race Delivery Type 3600.15 9704 M Full Term 2588 Repeat Ruiz Calculation Initial Ruiz Date Initial Exam Date Initial Exam Provider Initial Ultrasound Date Last Menstrual Period Date Ultra Sound Weeks Gestation 0 Eighteen To Twenty Week Ruiz Update Ultra Sound Date Fundal Height At Umbil Quickening Date Ultra Sound Latest Weeks Gestation Final Ruiz Confirmed By Final Ruiz Confirmed Date Final Ruiz Date Ultra Sound Latest Days Gestation 0 0 Menstrual History Last Menstrual Date Menses Monthly On Bcp Conception Prior Menses Frequency Hcg Plus Date Menarche Onset Age Delivery Information Delivery Date Delivery Type Labor Anesthesia Weeks Gestation Incision Type Labor Labor Length Hrs Delivered By Post Complications Tubal Sterilization Discharge Date Comments 2 38 Discharge Information Feeding Method Contraceptive Method Maternal HG B and HCT Levels Ob Episode Information Episode Created Date Number of Fetuses Patient Bloodtype Patient rh Status Prepregnancy Weight lbs Domestic Partner Domestic Partner Phone Father Name [employer] Status 12/16/19 20 1 CLOSED Fetus Data First Name Last Name Admitted to NICU Weight (g) Sex Living Outcome Pediatric Complications Fetus ID Race Codes Race Delivery Type 3316.66 4704 M Full Term 2590 Primary Ruiz Calculation Initial Ruiz Date Initial Exam Date Initial Exam Provider Initial Ultrasound Date Last Menstrual Period Date Ultra Sound Weeks Gestation 0 Eighteen To Twenty Week Ruiz Update Ultra Sound Date Fundal Height At Umbil Quickening Date Ultra Sound Latest Weeks Gestation Final Ruiz Confirmed By Final Ruiz Confirmed Date Final Ruiz Date Ultra Sound Latest Days Gestation 0 0 Menstrual History Last Menstrual Date Menses Monthly On Bcp Conception Prior Menses Frequency Hcg Plus Date Menarche Onset Age Delivery Information Delivery Date Delivery Type Labor Anesthesia Weeks Gestation Incision Type Labor Labor Length Hrs Delivered By Post Complications Tubal Sterilization Discharge Date Comments 5 38 Discharge Information Feeding Method Contraceptive Method Maternal HG B and HCT Levels
--- OUTSIDE RECORDS SUMMARY | 2025-05-09 08:33 | XMS_ITS | Continuity of Care Document ---
Author Organization [facility] Address [address] [place] [address] Assessment Encounter Date Assessment Date Assessment LastModified by Organization Details LastModified Time 03/07/2025 03/07/2025 Annual gynecological exam performed. Patient [...] 0.1 mg/24 hr transdermal patch 2024 025 [id number] [id number] In [facility], [address] [place], [address], 5 10:37:40 progesteron e micronized 200 mg capsule 2024 025 MIMI [facility] [id number] In [facility], [address] [place], [address], 5 10:37:32 Patient TargetsNo targets recorded. Patient InstructionsNo instructions [...] t Case: [id number] Autho leona gtz Provi marcus: Chandrika Whitney MD Colle cted: 03/07 1048 Order ing Locat ion: [place] Patho logyaya Recei karthik: 03/08 0049 First Francisco n: Lexx Camarena ed, CT Speci men: Francisco beltre Pap - Image d, Cervi x STATE MENT OF ADEQU ACY: Satis facto ry for evalu ation Trans forma tion zone compo nent absen t ----- ----- ----- ----- ----- ----- ----- ----- ----- ----- ----- ----- ----- ----- ----- ----- ----- ---- FINAL DIAGN OSIS: Negat florina for Intra epith elial Trevor ventura or Tina holm ([facility]) . Elect ferdinand lewis by Lexx Camarena ed, CT on 2024 [...] ion is recom dana d, as clini elina warra nted. Not Available [facility] (Lab) [address] [facility], [place], [address], 03/12/2025 00:00:54 Result Notes None recorded. Problems Name Problem SNOMED Code Status Onset Date Resolution Date Notes Provider Name and Address Organization Details Recorded Time Screenin g for malignan t neoplasm of cervix Completed 201112/24/2020 Pap Smear;Pr actice ID: 0001 Maggi espinoza [facility] 17:06:53 Adult health examinat ion Completed 201312/24/2020 ROUTINE MEDICAL EXAM;Rec orded Elsewher e: No Locat ion: Elizabeth foster [facility] S ource: EHR Endoscopy Rn tan: N Practi ce ID: 0001 Matt lable Time: 08:30:00 AM Maggi espinoza [facility] 17:06:39 Speciali zed medical examinat ion Completed 201412/24/2020 Gynecolo gical Examinat ion;Kuldip rded Elsewher e: No Locat ion: Shoshana cristian [facility] S ource: EHR Endoscopy Rn tan: N Practi ce ID: 0001 Matt lable Time: 08:30:00 AM Maggi Walker [facility] 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 17:06:58 Pain co-occur rent and due to varicose veins of left leg [id number] Completed 201612/24/2020 Varicose veins of left lower extremit ies with pain;Rec orded Elsewher e: No Locat ion: Shoshana cristian [facility] S ource: EHR Endoscopy Rn tan: N Practi ce ID: 0001 Matt lable Time: 09:00:00 AM Maggi Walker [facility] 17:06:[address] Concept Completed 201612/24/2020 Encntr for general adult medical exam w/o abnormal findings ;Recorde d Elsewher e: No Locat ion: [facility] Pract[facility] ID: 0001 Matt lable Time: 09:00:00 AM Maggi Walker [facility] 17:06:56 Urinary tract infectio us disease [id number] Completed 201612/24/2020 Urinary tract infectio n, site not specifie d;Practi ce ID: 0001 Maggi Walker [facility] 17:07:02 Increase d frequenc y of urinatio n [id number] Completed 201612/24/2020 Frequenc y of micturit ion;Prac samra ID: 0001 Maggi Walker [facility] 17:06:46 Evaluati on finding Completed 201712/24/2020 Hematuri a, unspecif ied;Kuldip rded Elsewher e: No Locat ion: [facility] S ource: EHR Endoscopy Rn tan: N Practi ce ID: 0001 Matt lable Time: 04:30:00 PM Maggi Walker [facility] 17:06:45 Screenin g for malignan t neoplasm of rectum Completed 201812/24/2020 Encounte r for screenin g for malignan t neoplasm of rectum;R ecorded Elsewher e: No Locat ion: [facility] N Practi ce ID: 0001 Matt lable Time: 08:30:00 AM Maggi Walker [facility] 17:06:55 Pelvic and perineal pain [id number] Completed 201812/24/2020 Pelvic pain;Rec orded Elsewher e: No Locat ion: [facility] N Practi ce ID: 0001 Matt lable Time: 08:30:00 AM Maggi Walker [facility] 17:06:52 Problem Notes None recorded. Procedures Surgical History Date Name Laterality Status Provider Name and Address Organization Details Recorded Time 3 Date of Last [facility]ogram [facility]23 16:28:20 3 Date of Last Pap Smear completed Tonya Taylor [facility] 11/23/2023 16:26:48 2 section completed Teri Moody [facility] 04/17/2021 10:54:07 2 Tubal Ligation completed [facility] 04/17/2021 10:53:54 7 section completed [facility] 04/17/2021 10:54:14 5 section completed [facility] 04/17/2021 10:54:28 1 extraction of wisdom tooth completed [facility] 04/19/2021 16:06:15 Imaging Results None recorded. Procedure Notes None recorded. Medical Equipment None Reported. Allergies Allergen ID Allergen Name Allergen Category Reaction Reaction Severity Criticality Documentation Date Start Date Code Code System Note Provider Name and Address Organization Details Recorded Time 1133 codeine medicatio n Not available Not available Not available 12/16/2019 2670 RxNorm upset stoma Adela Shirley [facility] 3 10:30:49 Medications Name Sig Start [...] BY MOUTH EVERY DAY FOR 90 DAYS 03/075 completed Not Available Not Available Not Available Vitamins and Minerals tablet 10/17 completed Prescrib ed [facility] e: Yes Loca tion: Elizabeth foster [facility] M odbo By: rupal crain DateTime : 12/14/19 12 [...] Updated DateTime 03/07/2025 162.56 cm 21.6 kg/m2 33593.64 g 129/78 mm[Hg] Lexy Platt [facility] 03/07/2025 10:12:08 Social History Question Answer Notes LastModified by Organizat ion Details LastModified Time Tobacco Smoking Status Never Smoker Sahil espinoza [facility] 04/17/2021 10:35:58 Do You Have An [...] Type Of Diet Are You Following? REGULAR [email or web address] Information n ot available 04/17/2021 What Is The Highest Grade Or Level Of School You Have Completed Or The Highest Degree You Have Received? [id number] Information not available 04/05/2021 Have You Ever Been Counseled For Unhealthy Alcohol Use? No [email or web address] Information not available 08/07/2021 Do You Use Your Seat Belt Or Car Seat Routinely? Yes Information not available 12/24/2020 Do You Have Smoke And Carbon Monoxide Detectors In Your Home? Yes Information not available 12/24/2020 How Much Tobacco Do You Smoke? No Information not available 04/05/2021 Do You Use Sunscreen Routinely? Yes Information not available 12/24/2020 Has Tobacco Cessation Counseling Been Provided? No [email or web address] Information not available 08/07/2021 Have You Used IV Drugs? No Information not available 04/05/2021 Do You Have Difficulty Walking Or Climbing Stairs? No Information not available 08/07/2021 Sex: Unknown Functional Status Question Answer Note LastModified by Organizat ion Details LastModified Time Do you use any illicit or recreational drugs? No Information not available 12/24/2020 Do you or have you ever used any other forms of tobacco or nicotine? No [email or web address] Information not available 08/07/2021 What is your level of alcohol consumption? Occasional Information not available 08/07/2021 Are you able to walk independently without assistance or assistive devices? YESWOREST Information not available 12/24/2020 Are you able to care for yourself independently? Yes Information not available 08/07/2021 Do you have difficulty dressing, bathing, grooming, or toileting? No [email or web address] Information not available 08/07/2021 What is your exercise level? Occasional Information not available 04/05/2021 Mental Status Question Answer Note LastModified by Organization D etails LastModified Time Do you feel stressed (tense, restless, nervous, or anxious, or unable to sleep at night)? [id number] Information not available 12/24/2020 Family History Relationship Description Onset Age of this Age Resolved Age Notes LastModified by Organization Details LastModified Time Father No current problems or disability [email or web address] Not available 03/21 09:33:07 Mother No current problems or disability [email or web address] Not available 03/21 09:33:07 Medical History Condition [...] ICD10 Code Diagnosis IMO Codes Diagnosis Note [id number] PEDRO PABLO JOYNER MD [place] [address] [address] 03/07/2025 09:51:09 03/07/2025 10:43:03 Menopausal symptom 80404226 N95.1 - symptoms improved on estrogen patch and 200mg progestero ne- no side effects- continue estradiol patch/PO progestero ne Gynecologi c examination 38876352 Z01.419 [id number] Well woman care- Cervical cancer screening: Pap smear not indicated [...] by Organization Details LastModified Time None Recorded Payers Encounter Date Sequence Insurance Name Policy Number Policy Ritter Covered Member ID Ritter Member ID Guarantor Name 03/07/2025 1 [facility] [id number] Genevieve Correia [id number] Genevieve Correia Notes Date Note Type Note Provider Name and Address Organization Details Recorded Time 03/07/2025 text/html Presents today for her annual well-woman exam. Denies abnormal vaginal discharge. She is sexually active and denies dyspareunia. She is using tubal ligation for contraception, and she states that she is satisfied with this method. She has not noticed any changes or masses in her breasts. Mammogram scheduled in March. Amenorrheic with HRT. PEDRO PABLO JOYNER MD [address], [place], [address], [facility] 03/07/2025 10:37:44 OBGyn Episode No OBEpisode recorded.
--- OUTSIDE RECORDS SUMMARY | 2025-05-09 08:33 | XMS_ITS | Clinical Summary ---
Author Organization [facility] Address [facility] [place] [address] Care Team Providers Care Gis Technician Name Role Phone Cherie Bowers DO Primary Care Provider [phone] Allergies Active Allergy Reactions Criticality Noted Date Comments Codeine Nausea only Low 08/05/2024 Medications progesterone (PROMETRIUM) 200 mg capsule TAKE 1 CAPSULE BY MOUTH EVERY DAY FOR 90 DAYS 5 Active estradioL (VIVELLE-DOT) 0.1 mg/24 hr APPLY 1 PATCH BY TRANSDERMAL ROUTE TWICE A WEEK Active mv-mn/iron fum/FA/om3,6,9 no.3 (WOMEN'S MULTI ORAL) Take by mouth 5 Active ascorbic acid, vitamin C, 1,000 mg capsule Take 1 g by mouth 4 Active omega-3 fatty acids-fish oil 300-1,000 mg capsule Take 2 capsules (2 g total) by mouth daily Active Active Problems Problem Noted Date Diagnosed Date Eczematous dermatitis of eyelid 03/07/2025 Essential hypertension 03/07/2025 Impetigo 03/07/2025 Lab test positive for detection of COVID-19 viru s 03/07/2025 Overview (03/07/2025): 11.14.20 Migraine aura without headache (migraine equival ents) 03/07/2025 Mixed hyperlipidemia 03/07/2025 Other seasonal allergic rhinitis 03/07/2025 Rhinitis 03/07/2025 Prediabetes 03/07/2025 Encounters Date Type Department Care Team Description 03/07/2025 5:27 PM CDT - 03/07/2025 11:59 PM CDT Hospital Encounter [facility] [address] [place] [address] Discharge Disposition: Discharge to home or self care 03/07/2025 1:21 PM CDT - 03/07/2025 11:59 PM CDT Hospital Encounter [facility] [address] [place] [address] Cervical spine pain Discharge Disposition: Discharge to home or self care 03/07/2025 1:10 PM CDT Office Visit [facility] [address] [place] [address] for Advanced Medicine [address] [place] [address] [place] [address] Ziyad Haque MD Cervical radiculopathy (Primary Dx) 03/07/2025 Orders Only [facility] [address] [place] [address] Advanced Medicine [address] [place] [address] [place] [address] Ziyad Haque MD Neck pain (Primary Dx) from Last 3 Months Surgical History Surgery Date Site/Laterality Comments SECTION x3 Medical History Medical History Date Comments Mitral valve prolapse Social History Tobacco Use Types Packs/Day Years Used Date Smoking Tobacco: Never Tobacco Cessation:Counseling Given: Not Answered AUDIT-C Answer Date Recorded Q1: How often do you have a drink containing alc ohol? Never 03/07/2025 Average Number of Drinks Not on file 025 Frequency of Binge Drinking Not on file 02/17 Comments Unknown Sex and Gender Information Value Date Recorded Sex Assigned at Not on file Legal Sex Female 6:54 PM [employer] Gender Identity Not on file Sexual Orientation Not on file Last Filed Vital Signs Vital Sign Reading Time Taken Comments Blood Pressure - - Pulse - - Temperature - - Respiratory Rate - - Oxygen Saturation - - Inhaled Oxygen Concentration - - Weight 57.6 kg (127 lb) 03/07/2025 1:41 PM CDT Height 162.6 cm (5' 4) 03/07/2025 1:41 PM CDT Body Mass Index 21.8 03/07/2025 1:41 PM CDT Plan of Treatment Health Maintenance Due Date Last Done Comments Breast Cancer Screening-Mammogram 1971 Cervical Cancer Screening 1971 Colon Cancer Screening-Colonoscopy 1971 Depression Screening 1971 Hepatitis C Screening 1971 Regular Well Visit/Exam 18-64 11/12/1989 Zoster Vaccine (1 of 2) 11/12/2021 Influenza Vaccine (#1) 2025 , 03/20/2020, 04/10/2017, Additional history exists DTaP/Tdap/Td Vaccine (4 - Td or Tdap) 12/23/2034 12/23/2024, 12/01/2016, 03/27/2007 Hepatitis B Screening Completed 11/04/2011 , 06/29/2011, 05/05/2011 Pneumococcal vaccine <65 Aged Out No longer eligible based on patient's age to complete this topic Procedures Procedure Name Priority Date/Time Associated Diagnosis Comments NEURO CT OUTSIDE REFERENCE Routine 03/07/2025 5:27 PM CDT XR SPINE CERVICAL W FLEXION AND EXTENSION 4 VIEWS Schedule Routine, Read Routine (OP Routine) 03/07/2025 1:26 PM CDT Cervical spine pain from Last 3 Months Results * Neuro CT Outside Reference (03/07/2025 5:27 PM CDT) Impressions [facility] - 03/07/2025 5:27 PM CDT These images are for Reference purposes only and have not been reviewed by [facility] Radiology. There will be no report generated by a [facility] Radiologist. Narrative [facility] - 03/07/2025 5:27 PM CDT EXAMINATION: Images For Reference Purposes Only us Ziyad Haque MD IMG CT PROCEDURES Final Result [facility] * XR Spine Cervical W Flexion And Extension 4 or 5 Views (03/07/2025 1:26 PM CDT) Anatomical Region Laterality Modality Spine N/A Computed Radiogr aphy 03/07/2025 3:59 PM CDT Impressions 03/07/2025 4:11 PM CDT Mild multilevel degenerative disc disease the cervical spine. Dictated by: More Cao M.D. The radiology attending physician has personally reviewed this study, and had reviewed and/or edited this written report and agrees with it. Electronically signed by: Armani Good M.D. Narrative 03/07/2025 4:11 PM CDT EXAMINATION: XR SPINE CERVICAL W FLEXION AND EXTENSION 4 OR 5 VIEWS HISTORY: Cervical neck pain COMPARISON: None. FINDINGS: 4 radiographs of the cervical spine were submitted for interpretation. There is straightening of the cervical spine. There is no listhesis. There is no abnormal motion with flexion or extension. There are no compression fractures. There is mild multilevel degenerative disc disease of cervical spine. Procedure Note Armani Good MD - 03/07/2025 EXAMINATION: XR SPINE CERVICAL W FLEXION AND EXTENSION 4 OR 5 VIEWS HISTORY: Cervical neck pain COMPARISON: None. FINDINGS: 4 radiographs of the cervical spine were submitted for interpretation. There is straightening of the cervical spine. There is no listhesis. There is no abnormal motion with flexion or extension. There are no compression fractures. There is mild multilevel degenerative disc disease of cervical spine. IMPRESSION: Mild multilevel degenerative disc disease the cervical spine. Dictated by: More Cao M.D. The radiology attending physician has personally reviewed this study, and had reviewed and/or edited this written report and agrees with it. Electronically signed by: Armani Good M.D. Ziyad Haque MD IMG XR PROCEDURES Final Result from Last 3 Mon[address] Insurance [facility] H[facility]/PPO Address: [facility] [address] [place] [address] [facility] H[facility]/PPO Address: [facility] [id number] [place] [id number] Care Teams Gis Technician Relationship Specialty Start Date End Date Cherie Bowers DO PCP - General Family Medicine 09/26/24
== END 2025-05-09 08:29 | disposition home or self-care (01) ==
LOC: ANHFOHIMG 08:30
PROVIDERS: PCP Obstetrics & Gynecology; Visit Provider Family Medicine
DX: Z12.31 Encounter for screening mammogram for malignant neoplasm of breast (principal)
CPT/HCPCS: 77063; 77067